=== PATIENT | female | born 1960 | race Caucasian/White ===

== ENCOUNTER 2017-02-18 04:25 | Emergency (ER) | payer MEDICARE ==
[~2017-02-18] VITALS: Ht 170.2 cm; Wt 66.0 kg
[2017-02-18] MEDS ORDERED: FAMOTIDINE 20 MG/2 ML ONE (04:48)
[2017-02-18] MEDS ORDERED: HYDROmorphone 2 MG/ML, 1ML ONE (04:48)
[2017-02-18] MEDS ORDERED: ONDANSETRON 2MG/ML, 2ML ONE (04:48)
[2017-02-18] MEDS ORDERED: ONDANSETRON 2MG/ML, 2ML IVPush ONE (05:00)
[2017-02-18] MEDS ORDERED: HYDROmorphone 1 MG/ML, 1ML IVPush PRN (05:00)
[2017-02-18] MEDS ORDERED: SODIUM CHLORIDE 0.9% 1,000ML IVBOLUS ONE (05:00)
[2017-02-18] MEDS ORDERED: FAMOTIDINE 20 MG/2 ML IVPush ONE (05:00)
[2017-02-18] MEDS ORDERED: SODIUM CHLORIDE FLUSH 10ML SYR IVF ONE (05:00)
[2017-02-18 05:23] LABS: HEMATOCRIT 45.6 % (34.6-47.8); HEMOGLOBIN 15.2 g/dL (11.7-16.4); WHITE BLOOD COUNT 8.4 x10^3/uL (3.4-10)
[2017-02-18 05:41] LABS: ASPARTATE AMINO TRANSFERASE 17 U/L (15-37); BLOOD UREA NITROGEN 8 mg/dL (7-18)
[2017-02-18 05:59] VITALS: BP 112/60
== END 2017-02-18 06:01 | disposition home or self-care (01) ==
LOC: ED 05:17
DX: K29.50 Unspecified chronic gastritis without bleeding (principal); Z85.3 Personal history of malignant neoplasm of breast
CPT/HCPCS: 36415; 71010; 80053; 83605; 83690; 85025; 96361; 96374; 96375; 99285; J1170; J2405; J7030; S0028